=== PATIENT | male | born 1975 | race Caucasian/White ===

== ENCOUNTER 2019-01-07 22:56 | Emergency (ER) | payer MEDICAID ==
[~2019-01-07] VITALS: Ht 175.3 cm; Wt 79.5 kg
[2019-01-08] MEDS ORDERED: HYDROCODONE/ACETAMINOPHEN 5/325MG TABLET PO ONE (02:15)
[2019-01-08] MEDS ORDERED: KETOROLAC 30MG/ML VIAL IV ONE (02:15)
[2019-01-08 02:39] LABS: CREATINE KINASE 142 IU/L (39-308)
[2019-01-08 06:04] VITALS: BP 105/65
== END 2019-01-08 06:05 | disposition home or self-care (01) ==
LOC: ER 23:35
DX: M79.662 Pain in left lower leg (principal); J45.909 Unspecified asthma, uncomplicated
CPT/HCPCS: 36415; 73552; 73562; 82550; 93971; 96374; 99284; J1885